=== PATIENT | female | born 1945 | race Caucasian/White ===

== ENCOUNTER 2021-10-07 00:51 | Inpatient (IN) ==
[2021-10-08] MEDS ORDERED: *HR* Bivalirudin 250 MG VIAL IVC ONE ×2 (00:08→02:02)
[2021-10-08] MEDS ORDERED: *HR* Midazolam HCl 2 MG/2 ML VIAL ONE (00:08)
[2021-10-08] MEDS ORDERED: *HR* FentaNYL (PF) 100 MCG/2 ML VIAL ONE (00:08)
[2021-10-08] MEDS ORDERED: Nitroglycerin 1,000 MCG/5 ML VIAL IV ONE (00:09)
[2021-10-08] MEDS ORDERED: ISOVUE-370 200 ML INFUS..BTL ONE ×2 (00:09→01:46)
[2021-10-08] MEDS ORDERED: *HR* Heparin 10,000 UNIT/10 ML VIAL ONE (00:09)
[2021-10-08] MEDS ORDERED: Heparin 1,000 UNITS/500 mL 500 ML ONE (00:09)
[2021-10-08] MEDS ORDERED: 0.9 % Sodium Chloride 2,000 ML ONE (00:09)
[2021-10-08] MEDS ORDERED: Ondansetron 4 MG/2 ML VIAL ONE (01:14)
[2021-10-08] MEDS ORDERED: Nitroglycerin 0.4 MG TAB.SUBL SL PRN (02:30)
[2021-10-08] MEDS ORDERED: Perflutren Lipid Microsphere 1.3 ML in 0.9 % Sodium Chloride 8.7 ML IVP PRN (02:30)
[2021-10-08] MEDS ORDERED: 0.9 % Sodium Chloride 1,000 ML IVC SCH (02:30)
[2021-10-08] MEDS ORDERED: D5% in Water 1,000 ML IVC PRN (02:38)
[2021-10-08] MEDS ORDERED: Dextrose 4 GM Chewable Tablets PO PRN ×2 (02:38)
[2021-10-08] MEDS ORDERED: *HR* Dextrose 50 % in Water (Syg) 50 ML SYRINGE IVP PRN (02:38)
[2021-10-08 04:21] LABS: Basophils % 0.1 %; Hematocrit 33.1 % (35.3-44.9); Hemoglobin 10.6 g/dL (11.5-15.4); Immature Granulocytes % 0.6 % (0-4); Lymphocytes # 1.1 K/mcL (0.6-4.6); Lymphocytes % 8.1 %; Mean Corpuscular Hemoglobin 30.6 pg (28.0-33.3); Mean Corpuscular Volume 95.7 fL (83.0-100.0); Mean Platelet Volume 9.4 fL (9.4-12.4); Monocytes # 0.6 K/mcL (0.0-1.3); Neutrophils # 12.3 K/mcL (1.6-8.9); Platelet Count 217 K/mcL (140-400); Red Blood Count 3.46 M/mcL (3.82-4.97); Red Cell Distribution Width 13.1 % (11.5-14.5); Segmented Neutrophils % 87.2 %; White Blood Count 14.1 K/mcL (4.3-11.1)
[2021-10-08 04:44] LABS: Calcium 8.7 mg/dL (8.6-10.3); Chol/HDL Ratio 5.3 (0-4.9); Magnesium 1.7 mg/dL (1.6-2.6); Potassium 4.9 mEq/L (3.5-5.1)
[2021-10-08 04:47] LABS: Troponin I 32.52 ng/mL (< 0.04)
[2021-10-08 05:01] LABS: Thyroid Stimulating Hormone 0.706 mcIU/mL (0.340-5.600)
[2021-10-08 06:32] LABS: Estimated Average Glucose 146 mg/dl; Hemoglobin A1C 6.7 %
[2021-10-08] MEDS ORDERED: *HR* Atropine Sulfate 1 MG/10 ML SYRINGE ONE (08:41)
[2021-10-08] MEDS ORDERED: Metoprolol XL (24 HR) Succ 25 MG TAB.ER.24H PO SCH (09:00)
[2021-10-08] MEDS: Insulin LISPRO 300 UNITS/3 ML VIAL SUBQ SCH ×3 (09:29→16:18)
[2021-10-08] MEDS: lisinopriL 5 MG TABLET PO SCH (09:32)
[2021-10-08] MEDS: *HR* Ticagrelor 90 MG TABLET PO SCH ×2 (09:33→19:48)
[2021-10-08] MEDS: Aspirin 81 MG TAB.CHEW PO SCH (09:33)
[2021-10-08] MEDS: Metoprolol XL (24 HR) Succ 25 MG TAB.ER.24H PO SCH ×2 (09:37→19:48)
[2021-10-09 05:39] LABS: Basophils # 0.1 K/mcL (0.0-0.2); Basophils % 0.5 %; Eosinophils # 0.1 K/mcL (0.0-0.6); Eosinophils % 0.7 %; Hematocrit 35.2 % (35.3-44.9); Hemoglobin 11.3 g/dL (11.5-15.4); Immature Granulocytes % 0.7 % (0-4); Lymphocytes # 2.5 K/mcL (0.6-4.6); Lymphocytes % 20.9 %; Mean Corpuscular HGB Conc 32.1 g/dL (31.6-35.5); Mean Corpuscular Hemoglobin 30.5 pg (28.0-33.3); Mean Corpuscular Volume 95.1 fL (83.0-100.0); Mean Platelet Volume 9.7 fL (9.4-12.4); Monocytes # 0.6 K/mcL (0.0-1.3); Monocytes % 5.1 %; Neutrophils # 8.5 K/mcL (1.6-8.9); Platelet Count 227 K/mcL (140-400); Red Cell Distribution Width 13.2 % (11.5-14.5); Segmented Neutrophils % 72.1 %; White Blood Count 11.7 K/mcL (4.3-11.1)
[2021-10-09 06:02] LABS: Calcium 9.5 mg/dL (8.6-10.3); Potassium 4.6 mEq/L (3.5-5.1)
[2021-10-09] MEDS: Insulin LISPRO 300 UNITS/3 ML VIAL SUBQ SCH ×3 (08:40→16:57)
[2021-10-09] MEDS: *HR* Ticagrelor 90 MG TABLET PO SCH ×2 (08:41→19:56)
[2021-10-09] MEDS: lisinopriL 5 MG TABLET PO SCH (08:41)
[2021-10-09] MEDS: Aspirin 81 MG TAB.CHEW PO SCH (08:41)
[2021-10-09] MEDS: Metoprolol XL (24 HR) Succ 25 MG TAB.ER.24H PO SCH ×2 (08:42→19:56)
[2021-10-09] MEDS ORDERED: 0.9 % Sodium Chloride 500 ML IV ONE ×2 (09:47→10:53)
[2021-10-09] MEDS ORDERED: *HR* Dextrose 50 % in Water (Syg) 50 ML SYRINGE IVP PRN (10:53)
[2021-10-09] MEDS ORDERED: Dextrose 4 GM Chewable Tablets PO PRN ×2 (10:53)
[2021-10-09] MEDS ORDERED: Nitroglycerin 0.4 MG TAB.SUBL SL PRN (10:53)
[2021-10-09] MEDS ORDERED: D5% in Water 1,000 ML IVC PRN (10:53)
[2021-10-09] MEDS: *HR* Heparin 5,000 UNIT/ML VIAL SQ SCH (19:56)
[2021-10-09] MEDS: Sucralfate 1 GM TABLET PO SCH (19:56)
[2021-10-10 02:33] LABS: Basophils # 0.1 K/mcL (0.0-0.2); Basophils % 0.5 %; Eosinophils # 0.1 K/mcL (0.0-0.6); Eosinophils % 0.9 %; Hematocrit 36.8 % (35.3-44.9); Hemoglobin 11.8 g/dL (11.5-15.4); Immature Granulocytes % 0.6 % (0-4); Lymphocytes % 22.3 %; Mean Corpuscular HGB Conc 32.1 g/dL (31.6-35.5); Mean Corpuscular Hemoglobin 30.4 pg (28.0-33.3); Mean Corpuscular Volume 94.8 fL (83.0-100.0); Mean Platelet Volume 9.7 fL (9.4-12.4); Monocytes # 0.7 K/mcL (0.0-1.3); Neutrophils # 9.4 K/mcL (1.6-8.9); Platelet Count 264 K/mcL (140-400); Red Blood Count 3.88 M/mcL (3.82-4.97); Red Cell Distribution Width 12.8 % (11.5-14.5); Segmented Neutrophils % 70.7 %; White Blood Count 13.2 K/mcL (4.3-11.1)
[2021-10-10 02:50] LABS: Calcium 9.4 mg/dL (8.6-10.3); Potassium 4.2 mEq/L (3.5-5.1)
[2021-10-10] MEDS: *HR* Heparin 5,000 UNIT/ML VIAL SQ SCH (05:29)
[2021-10-10 06:58] VITALS: TEMP 98.7
[2021-10-10] MEDS: Sucralfate 1 GM TABLET PO SCH (07:49)
[2021-10-10] MEDS: Metoprolol XL (24 HR) Succ 25 MG TAB.ER.24H PO SCH (07:50)
[2021-10-10] MEDS: *HR* Ticagrelor 90 MG TABLET PO SCH (07:52)
[2021-10-10] MEDS: Insulin LISPRO 300 UNITS/3 ML VIAL SUBQ SCH ×2 (07:52→11:57)
[2021-10-10] MEDS ORDERED: Aspirin 81 MG TAB.CHEW PO SCH (09:00)
[2021-10-10] MEDS ORDERED: lisinopriL 5 MG TABLET PO SCH (09:00)
[2021-10-10 11:34] VITALS: BP 137/55; O2SAT 98
[2021-10-10 12:06] VITALS: PULSE 77
== END 2021-10-10 14:18 | disposition home or self-care (01) | DRG 246 ==
LOC: PREOBSVTOIN 00:51 → ICNU 10-08 01:13 → 2NNU 10-09 11:31
PROVIDERS: ADMIT Internal Medicine Interventional Cardiology; ATTEND Internal Medicine Interventional Cardiology